=== PATIENT | male | born 1985 | race Caucasian/White ===

== ENCOUNTER 2020-05-09 11:01 | Emergency (ER) | payer OTHER ==
[~2020-05-09] VITALS: Ht 180.3 cm; Wt 90.0 kg
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
== END 2020-05-09 13:23 | disposition home or self-care (01) ==
LOC: ER 11:01
DX: M79.632 Pain in left forearm (principal); M25.532 Pain in left wrist
CPT/HCPCS: 73090; 73100; 99284